=== PATIENT | male | born 1975 | race Caucasian/White ===

== ENCOUNTER → 2022-03-18 | Outpatient (CLI) | payer BC ==
--- NOTE | 2022-03-18 14:27 | Diagnostic Imaging Report ---
Indication: Hematuria and kidney stone. Time of Exam: 11:12 AM No prior studies are available for comparison. Bowel gas pattern is unremarkable. No definite calculi are seen overlying the renal shadows. There is a tiny calcific density in the distribution of the distal left ureter which could be a distal ureteric calculus. No other calculi are seen. IMPRESSION: Questionable distal left ureteric calculus. The study is otherwise unremarkable. Dictated by: Dictated on workstation # [id number]
== END ==
LOC: RAD FS 10:57
PROVIDERS: ATTEND Urology
DX: N20.0 Calculus of kidney (principal)
CPT/HCPCS: 74018

== ENCOUNTER → 2022-03-18 | Outpatient (CLI) | payer BC ==
--- NOTE | 2022-03-18 14:42 | Diagnostic Imaging Report ---
EXAMINATION: CT abdomen and pelvis without contrast. TECHNIQUE: Multiple contiguous axial images were obtained through the abdomen and pelvis without the use of intravenous contrast. All CT scans use one or more of the following dose optimizing techniques: automated exposure control, MA and/or KvP adjustment based on patient size and exam type or iterative reconstruction. HISTORY: FLANK PAIN COMPARISON: None available. FINDINGS: Lung bases: The lung bases are clear. Solid organs: There is diffuse hypoattenuation of the liver which can be seen with hepatic steatosis. The gallbladder is normal. There is no biliary ductal dilation. Pancreas is normal. Spleen is normal. Adrenal glands are normal. The kidneys are normal without visualized calculus or hydronephrosis. There is a 0.4 some calculus within distal left ureter. Bowel: The stomach and small bowel are normal without obstruction. The colon and appendix are normal. Peritoneum: There is no intraperitoneal free fluid or free air. No suspicious lymphadenopathy. Vasculature: Normal without aneurysm. Musculoskeletal: Degenerative changes of the spine without suspicious osseous lesion or compression fracture. Pelvis: The prostate gland is normal. The urinary bladder is normal. IMPRESSION: 1. A 0.4 cm distal left ureteral calculus without significant hydronephrosis. 2. Hepatic steatosis. Dictated by: Dictated on workstation # [id number]
== END ==
LOC: RAD FS 13:57
PROVIDERS: ATTEND Urology
DX: N20.1 Calculus of ureter (principal); K76.0 Fatty (change of) liver, not elsewhere classified
CPT/HCPCS: 74176

== ENCOUNTER → 2022-04-15 | Outpatient (CLI) | payer BC ==
--- NOTE | 2022-04-15 16:23 | Diagnostic Imaging Report ---
CLINICAL INDICATIONS: Patient with history of renal calculi. EXAM: X-ray of the abdomen with multiple supine views. COMPARISON: X-ray of the abdomen dated 03/18/2022. FINDINGS AND IMPRESSION: 1: The previously seen subtle calcification to the left side of the sacrum is not visualized on this exam and may be resolved. There are no areas concerning for stones overlying the expected regions of the kidneys, ureters, or bladder. 2: There is a nonobstructed bowel gas pattern. There is no evidence of abdominal free air. 3: There are hypertrophic spurs involving the visualized lower thoracic and lumbar spine. There is stable left curvature of the thoracolumbar spine. 4: The remainder of this exam shows no significant interval change compared to the prior study of comparison. Dictated by: Dictated on workstation # [id number]
== END ==
LOC: RAD FS 13:20
PROVIDERS: ATTEND Urology
DX: Z87.442 Personal history of urinary calculi (principal)
CPT/HCPCS: 74018